=== PATIENT | female | born 1970 ===

== ENCOUNTER → 2021-04-04 | Outpatient (CLI) | payer BC | LOC: SJCVCIMAG 04-02 14:11 | PROVIDERS: ATTEND Internal Medicine Cardiovascular Disease | DX: R06.00 Dyspnea, unspecified (principal); R00.2 Palpitations; I10 Essential (primary) hypertension; K59.00 Constipation, unspecified; K59.09 Other constipation; K21.9 Gastro-esophageal reflux disease without esophagitis; E78.5 Hyperlipidemia, unspecified; Z88.2 Allergy status to sulfonamides; Z88.8 Allergy status to other drugs, medicaments and biological substances; Z91.048 Other nonmedicinal substance allergy status ==